=== PATIENT | female | born 1975 | race African-American/Black ===

== ENCOUNTER 2017-07-28 16:41 | Emergency (ER) | payer OTHER ==
[2017-07-28] MEDS ORDERED: Dexamethasone 4 mg/ml Vial ONE (19:45)
== END 2017-07-28 20:12 | disposition home or self-care (01) ==
LOC: ERS 16:41
DX: J02.9 Acute pharyngitis, unspecified (principal)
CPT/HCPCS: 87081; 87430; 99283; J1100

== ENCOUNTER 2017-09-06 00:38 | Emergency (ER) | payer OTHER ==
[2017-09-06] MEDS ORDERED: Promethazine HCl 25 MG/ML VIAL ONE (01:12)
[2017-09-06] MEDS ORDERED: Dicyclomine 20 MG TAB ONE (01:12)
[2017-09-06] MEDS ORDERED: Pantoprazole 40 MG VIAL ONE (01:13)
[2017-09-06 01:36] LABS: #Eosinphils 0.1 thou/uL (0.0-0.7); #Lymphocytes 1.4 thou/uL (1.20-3.40); #Monocytes 0.8 thou/uL (0.11-0.59); %Basophils 0.4 % (0.0-1.0); %Eosinophils 0.7 % (0.0-10.0); %Lymphocytes 12.1 % (21.0-51.0); %Monocytes 6.9 % (0.0-10.0); Hemoglobin 12.9 g/dL (12.0-16.0); Mean Corpuscular HGB CONC 31.5 g/dL (32.0-36.0); Mean Corpuscular Hemoglobin 25.8 pg (27.0-31.0); Mean Corpuscular Volume 81.9 fl (81.0-99.0); Mean Platelet Volume 8.1 fL (7.4-10.4); Platelet Count 241 thou/uL (130-400); RBC Distribution Width 13.2 % (11.5-14.5); Red Blood Cell (RBC) Count 4.98 mill/uL (4.20-5.40); White Blood Cell (WBC) Count 11.2 thou/uL (4.8-10.8)
[2017-09-06 01:49] LABS: BHCG - Serum Negative (NEGATIVE); Pregs Control Background? CLEAR/WHITE (CLR/WHITE); Pregs Control Bar Appear? YES (CONTROL BAR)
[2017-09-06 01:50] LABS: ALT (SGPT) 38 U/L (8-55); AST (SGOT) 37 U/L (5-34); Albumin 4.1 g/dL (3.5-5.0); Alkaline Phosphatase 78 U/L (40-150); Anion Gap 13 mmol/L (10-20); BUN (Urea Nitrogen) 12 mg/dL (7.0-18.7); Bilirubin, Total 0.8 mg/dL (0.2-1.2); Calc. Creatinine Clearance 0 mL/min (70-130); Calcium 9.7 mg/dL (7.8-10.44); Carbon Dioxide 22 mmol/L (22-29); Chloride 107 mmol/L (98-107); Estimated GFR-MDRD Greater than 90; Globulin 3.5 g/dL (2.4-3.5); Glucose 127 mg/dL (70-105); Lipase 36 U/L (8-78); Potassium 3.9 mmol/L (3.5-5.1); Protein, Total 7.6 g/dL (6.0-8.3); Sodium 138 mmol/L (136-145)
[2017-09-06] MEDS ORDERED: Mag-Al 1200 mg/1200 mg/30 ML UDCUP ONE (02:05)
[2017-09-06] MEDS ORDERED: Lidocaine Viscous Sol 2% 15 ml UD Cup ONE (02:05)
[2017-09-06 03:27] LABS: Bilirubin Negative (Negative); Blood, Urine Negative (Negative); Clarity CLEAR (Clear); Glucose, Urine (Dipstick) Negative (Negative); Leukocyte Negative (Negative); Nitrite Negative (Negative); Protein, Urine (Dipstick) Negative (Neg-Trace); Urobilinogen 0.2 mg/dL (0.2-1.0); pH, Urine 8.5 (5.0-9.0)
== END 2017-09-06 05:05 | disposition home or self-care (01) ==
LOC: ERS 00:38
DX: K29.00 Acute gastritis without bleeding (principal); I50.9 Heart failure, unspecified; Z79.899 Other long term (current) drug therapy
CPT/HCPCS: 36415; 80053; 81003; 83690; 84703; 85025; 96365; 96366; 96372; 96375; C9113; J2550

== ENCOUNTER 2017-09-29 16:01 | Outpatient (CLI) | payer OTHER | END 2017-09-29 16:02 | disposition home or self-care (01) | LOC: BICMAMMO 16:01 | PROVIDERS: ATTEND Family Medicine | DX: Z12.31 Encounter for screening mammogram for malignant neoplasm of breast (principal); Z80.3 Family history of malignant neoplasm of breast | CPT/HCPCS: 77063; 77067 ==

== ENCOUNTER 2017-11-21 07:30 | Day surgery (SDC) | payer OTHER ==
[2017-11-21] MEDS ORDERED: diphenhydrAMINE 50 MG/ML VIAL ONE ×2 (08:01→08:18)
[2017-11-21] MEDS ORDERED: Metoclopramide HCl 10 MG/2 ML VIAL ONE ×2 (08:01→15:09)
[2017-11-21 08:29] LABS: #Eosinphils 0.1 thou/uL (0.0-0.7); #Lymphocytes 1.3 thou/uL (1.20-3.40); #Monocytes 0.6 thou/uL (0.11-0.59); #Neutrophils 6.7 thou/uL (1.40-6.50); %Basophils 0.3 % (0.0-1.0); %Eosinophils 0.9 % (0.0-10.0); %Lymphocytes 15.2 % (21.0-51.0); %Monocytes 6.9 % (0.0-10.0); %Neutrophils 76.7 % (42.0-75.0); Hemoglobin 12.4 g/dL (12.0-16.0); Mean Corpuscular Volume 81.1 fL (78.0-98.0); Mean Platelet Volume 8.1 fL (7.4-10.4); Platelet Count 224 thou/uL (130-400); RBC Distribution Width 12.8 % (11.5-14.5); Red Blood Cell (RBC) Count 4.76 mill/uL (4.20-5.40); White Blood Cell (WBC) Count 8.7 thou/uL (4.8-10.8)
[2017-11-21 08:53] LABS: ALT (SGPT) 66 U/L (8-55); AST (SGOT) 84 U/L (5-34); Albumin 3.9 g/dL (3.5-5.0); Alkaline Phosphatase 87 U/L (40-150); Anion Gap 11 mmol/L (10-20); Bilirubin, Total 0.6 mg/dL (0.2-1.2); Calc. Creatinine Clearance 0 mL/min (70-130); Carbon Dioxide 23 mmol/L (22-29); Chloride 107 mmol/L (98-107); Estimated GFR-MDRD Greater than 90; Globulin 3.4 g/dL (2.4-3.5); Glucose 122 mg/dL (70-105); Lipase 39 U/L (8-78); Potassium 4.5 mmol/L (3.5-5.1); Protein, Total 7.3 g/dL (6.0-8.3); Sodium 136 mmol/L (136-145)
[2017-11-21 09:10] LABS: BUN (Urea Nitrogen) 12 mg/dL (7.0-18.7)
--- NOTE | 2017-11-21 09:49 | RAD ---
FRONTAL RADIOGRAPH CHEST: Date: 11/21/17 COMPARISON: 09/12/14. HISTORY: Right upper quadrant pain radiating towards the back with nausea and vomiting. FINDINGS: There is no pneumothorax, pleural fluid, focal consolidation, or alveolar edema. Heart and mediastina l contours are unremarkable. IMPRESSION: No acute findings. POS: [facility]
[2017-11-21 09:55] LABS: Bilirubin Negative (Negative); Blood, Urine Negative (Negative); Clarity CLEAR (Clear); Glucose, Urine (Dipstick) Negative (Negative); Leukocyte Negative (Negative); Nitrite Negative (Negative); Protein, Urine (Dipstick) Negative (Neg-Trace)
[2017-11-21 09:56] LABS: Pregnancy Test - Urine (BHCG) Negative (Negative); Pregu Control Background? CLEAR/WHITE (CLR/WHITE); Pregu Control Bar Appear? YES (CONTROL BAR)
[2017-11-21] MEDS ORDERED: Ampicillin/Sulbactam 3 GM in Sodium Chloride 0.9% 100 ML IVPB SCH (10:00)
--- NOTE | 2017-11-21 10:05 | ULT ---
RIGHT UPPER QUADRANT ULTRASOUND: Date: 11-21-17 Comparison: None History: Abdominal pain. Technique: Multiplanar grayscale sonographic imaging of the right upper quadrant obtained. FINDINGS: Imaged pancreas appears unremarkable. The distal body and tail are obscured by bowel gas. There is no focal liver lesion or intrahepatic biliary dilatation noted. Common bile duct measures 6 mm, within normal limits. The right kidney measures 9.3 cm in craniocaudal dimension and demonstrates no evidence for stone, hy dronephrosis, or mass. There is a shadowing echogenic focus in the region of the gallbladder neck suggesting a gallstone. e health information coder reports a positive Barrera's sign. Mild gallbladder wall thickening and trace pericholec ystic fluid suspected. IMPRESSION: Findings suggesting a stone in the region of the gallbladder neck with positive Barrera's sign as well as mild gallbladder wall thickening and questionable trace pericholecystic fluid. Findings are suspi cious for acute cholecystitis in the proper clinical setting. POS: [facility]
--- NOTE | 2017-11-21 11:38 | HP ---
DATE OF ADMISSION: 11/21/2017 HISTORY OF PRESENT ILLNESS: Ms. Washburn is a 42-year-old morbidly obese woman, with 1 spontaneous . The patient presented to the emergency department with recurrent epi gastric to right upper quadrant abdominal pain. She reported having a late lunch consisting of steak and fried chicken. She awoke a little past midnight with 10/10 epigastric to right upper quadrant a bdominal pain which radiated to her back. The pain was associated with 1 episode of emesis. The patient denies any fevers or chills. PAST MEDICAL HISTORY: Pertinent for morbid obesity. SURGICAL HISTORY: Pertinent for 1 8 years ago. 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 She is a , 1 set of twins an d 1 spontaneous . She denies any cigarette smoking or illicit drug abuse. She admits to occ asional intake of ethanol in moderate amounts. PREHOSPITALIZATION MEDICATIONS: Include Zantac which she takes [id number] although she was giv en a prescription for Prilosec 2 months ago during the last hospital visit at which time she was told she had gastroenteritis. She does not take the Prilosec at the moment. ALLERGIES: The patient denies any known drug allergies. FAMILY HISTORY: Notable for diabetes mellitus in her father who also has heart disease. Her mother has essential hypertension. Maternal grandmother with uterine carcinoma and 2 maternal aunts with br east carcinoma. REVIEW OF SYSTEMS: A 10 point review of systems essentially unremarkable except for as stated in pas t medical history and chief complaint. PHYSICAL EXAMINATION: GENERAL: This reveals a 42-year-old morbidly obese woman who is otherwise coherent and interactive a nd appears stated age. The patient is alert and oriented x3, appears to be in no acute distress at t he time of my evaluation. VITAL SIGNS: Includes blood pressure 128/95, pulse 78, respiratory rate is 18, temperature 97.7 degr ees Fahrenheit, oxygen saturation 98% on room air. HEENT: Reveals normocephalic and atraumatic. Pupils are equal, round, reactive to light and accommo dation. Extraocular muscles are intact bilaterally. No sclerae icterus is present. Oral mucosa is pink and moist. No lesions are noted. NECK: Supple. No palpable lymphadenopathy or thyromegaly present. HEART: Reveals regular rate and rhythm, no murmurs or gallops auscultated. LUNGS: Clear to auscultation bilaterally. Breathing regular and unlabored. ABDOMEN: Soft and obese. She has right upper quadrant tenderness to palpation with a positive Chery y sign. Liver and spleen nonpalpable below costal margin. EXTREMITIES: Reveals 2+ radial and pedal pulses bilaterally. NEUROLOGIC: Reveals no focal deficits present. PERTINENT LABORATORY DATA: CBC with 8700 white blood cells, hemoglobin and hematocrit are 12.4 and 3 8.6 respectively. Platelet count is 224,000. Metabolic profile: Sodium 136, potassium is 4.5, chlo ride is 107, bicarbonate is 23, BUN 12, creatinine 0.76, glucose is 122, total bilirubin is normal at 0.6, AST and ALT are elevated at 84 and 66 respectively. Serum lipase is normal at 39. I have personally reviewed the abdominal ultrasound, which is remarkable for enlarged gallbladder wit h gallbladder wall thickening and pericholecystic fluid. Gallbladder wall is thickened at 6.5 mm. C ommon bile duct is also dilated for this patient's age at 5.8 mm. Although I am not able to visualiz e any gallstones, the radiology report indicates a stone probably in the neck of the gallbladder. IMPRESSION: Acute cholecystitis with a dilated common bile duct. PLAN: Laparoscopic cholecystectomy with intraoperative cholangiogram. The above findings and plan have been discussed with the patient who indicates understanding of the i nformation given. I have advised the patient of the risk and benefits of the proposed surgery. Risk s include, but not limited to bleeding, infection, injury to bile duct or surrounding structures. Th e patient indicates understanding the information I have given her today. I have answered her questi ons. This information is given to the patient in the presence of her nurse. She has given consent f or this admission and surgical intervention.
[2017-11-21] MEDS ORDERED: Fentanyl 100 MCG/2 ML VIAL ONE (11:53)
[2017-11-21] MEDS ORDERED: Bupivacaine HCl 0.5%/Epinephrine 1:200,000/PF 30 ml Vial ONE (12:06)
[2017-11-21] MEDS ORDERED: Iothalamate Meglumine 60% 50 ML VIAL FS ONE (12:06)
[2017-11-21] MEDS ORDERED: Ondansetron HCl/PF 4 MG/2 ML Vial ONE ×2 (15:09→17:39)
[2017-11-21] MEDS ORDERED: PHENYLEPHRINE-NS 100 MCG/ML 10 ML SYRINGE ONE (15:09)
[2017-11-21] MEDS ORDERED: Lidocaine 1% PF 5 ML VIAL ONE (15:09)
[2017-11-21] MEDS ORDERED: Ketorolac Tromethamine 30 MG/ML VIAL ONE (15:09)
[2017-11-21] MEDS ORDERED: Glycopyrrolate 0.2 MG/ML 5 ML SYRINGE ONE (15:09)
[2017-11-21] MEDS ORDERED: Dexamethasone 20 MG/5 ML VIAL ONE (15:09)
[2017-11-21] MEDS ORDERED: Labetalol 100 MG/20 ML MDV ONE (15:09)
[2017-11-21] MEDS ORDERED: PROPOFOL 200 MG/20 ML VIAL ONE (15:09)
--- NOTE | 2017-11-21 15:59 | RAD ---
INTRAOPERATIVE CHOLANGIOGRAM FLUOROSCOPY: History: Cholecystitis. FINDINGS: Intraoperative fluoroscopy was provided for cholangiogram as performed by Dr. Brown. Three spot fluor oscopic images show opacification of a nondilated common duct without filling defect, and without cesar ling reliably demonstrated. Contrast passes into a loop of bowel at the mid abdomen on the images. POS: [facility]
--- NOTE | 2017-11-21 16:22 | OP ---
DATE OF OPERATION: 11/21/2017 PREOPERATIVE DIAGNOSES: Acute cholecystitis, cholelithiasis. POSTOPERATIVE DIAGNOSES: Acute cholecystitis, cholelithiasis. OPERATION PERFORMED: Laparoscopic cholecystectomy with intraoperative cholangiogram. SURGEON: Steve Brown D.O. ANESTHESIA: General endotracheal. ESTIMATED BLOOD LOSS: 10 mL FLUIDS GIVEN: 1500 mL crystalloids. SPONGE AND INSTRUMENT COUNT: Certified as correct x2. COMPLICATIONS: None apparent at the time of operation. INDICATIONS FOR PROCEDURE: A 42-year-old morbidly obese woman presented with recurrent epigastric ri ght upper quadrant abdominal pain. Clinical and radiographic examination was consistent with acute c holecystitis, cholelithiasis, for which patient was brought to the operating room for laparoscopic ch olecystectomy. The common bile duct was also dilated in diameter for this patient's age and the AST and ALT were also elevated. Therefore, intraoperative cholangiogram was warranted. DESCRIPTION OF PROCEDURE: Informed consent obtained from the patient, who was brought to the operati ng room and placed in spine position. Following general anesthesia, abdomen is sterilely prepped and draped in usual fashion. Skin below the umbilicus was infiltrated with 0.25% Marcaine with epinephr ine. A small curvilinear infraumbilical incision is made using an 11 scalpel. Umbilical stalk was g rasped with Odilon's and elevated. Veress needle was inserted through this incision placed in the pe ritoneal cavity through which the abdomen was insufflated with 3 liters of CO2 gas. Intraabdominal p ressure was noted at 2 mmHg. Following abdominal insufflation, Veress needle was removed and a 5 mm trocar introduced using the Visiport under laparoscopy. Laparoscopy confirmed proper placement of th e port, no injuries to underlying structures. Additional laparoscopy reveals gallbladder in the usua l anatomic location completely encased by omental adhesions. Under laparoscopy, a 12 mm epigastric a nd two 5 mm right lateral subcostal ports were placed after the overlying skin was infiltrated with 0 .25% Marcaine with epinephrine and appropriate incisions made. The patient was then placed in the re verse Trendelenburg position rotated to her left. I introduced [place] dissector with cautery to ta ke down omental adhesions revealing the fundus of the gallbladder. A prestige grasper was introduced through the right lateral subcostal port grasping the fundus of the gallbladder which was elevated c ephalad. Omental adhesions were then taken down from remainder of the gallbladder with good hemostas is. A second Prestige grasper introduced through the right medial subcostal port grasping the Hartma n's pouch, which was retracted laterally. Using a [place] dissector, the cystic duct was carefully dissected free from surrounding structures at the triangle of Calot. I applied one clip at the junct ion of the cystic duct and gallbladder. Cystic artery dissected free from surrounding structures and divided between clips. Two clips were applied proximally and one clip at the junction of the cystic artery and gallbladder. I then made a cystotomy proximal to the securing cystic ductal clip. Intro duced a cholangiocatheter in the right upper quadrant, inserting this into the cystic ductal lumen af ter it was flushed with saline. This was secured with a single clip. Cholangiogram was then completed using a total of 15 mL of Conray contrast. Finding no filling defec ts. Total fluoroscopy time was 41 seconds. Following cholangiography, securing clip was removed and cholangiocatheter was removed from the peritoneal cavity. The cystic duct was then divided between clips and applied two clips proximally. The gallbladder itself was removed from the liver bed using cautery with good hemostasis. The gallbladder was delivered of the abdominal cavity using an EndoCat ch. Operative site was then irrigated with saline, noting good hemostasis in place. All clips remai n in place, no bile stains present. Finding no other pathology, laparoscopy was terminated. Fascia of the epigastric port was closed using 0 Vicryl suture and Endo Close device under direct laparoscop y. Abdomen was desufflated. All ports and instruments removed and accounted for. Skin incisions we re closed using 4-0 Monocryl suture in subcuticular fashion. Dermabond was then applied over the inc isional closure. The patient tolerated procedure without any apparent complication and was returned to recovery room in satisfactory condition.
[2017-11-21] MEDS ORDERED: Morphine 4 MG/ML VIAL ONE (17:02)
[2017-11-21] MEDS ORDERED: HYDROcodone/Acetaminophen 5/325 mg Tablet ONE (17:25)
== END 2017-11-21 18:42 | disposition home or self-care (01) ==
LOC: ERS 07:30 → SDC 10:04
PROVIDERS: ATTEND Surgery
PROC: 0FT44ZZ Resection of Gallbladder, Percutaneous Endoscopic Approach (ICD-10-PCS; principal; 2017-11-21)
PROC: BF13YZZ Fluoroscopy of Gallbladder and Bile Ducts using Other Contrast (ICD-10-PCS; principal; 2017-11-21)
DX: K80.12 Calculus of gallbladder with acute and chronic cholecystitis without obstruction (principal); K83.8 Other specified diseases of biliary tract; E66.01 Morbid (severe) obesity due to excess calories; Z68.42 Body mass index [BMI] 45.0-49.9, adult
CPT/HCPCS: 36415; 71045; 76705; 80053; 81003; 81025; 83690; 85025; 86850; 86900; 86901; 88304; 96361; 96374; 96375; J0295; J0670; J1100; J1200; J1610; J1885; J2001; J2270; J2405; J2704; J2765; J3010; J7050; Q9961

== ENCOUNTER 2019-03-14 14:43 | Emergency (ER) | payer OTHER ==
[~2019-03-14 14:43] MED LIST: Iopamidol-370 76% 500 ML 1 ML ONE
[2019-03-14 15:30] LABS: #Basophils 0.1 thou/uL (0.0-0.2); #Lymphocytes 0.3 thou/uL (1.20-3.40); #Monocytes 0.5 thou/uL (0.11-0.59); #Neutrophils 10.4 thou/uL (1.40-6.50); %Basophils 1.3 % (0.0-1.0); %Eosinophils 0.4 % (0.0-10.0); %Lymphocytes 2.3 % (21.0-51.0); %Monocytes 4.5 % (0.0-10.0); %Neutrophils 91.5 % (42.0-75.0); Hemoglobin 13.9 g/dL (12.0-16.0); Mean Corpuscular HGB CONC 31.8 g/dL (32.0-36.0); Mean Corpuscular Hemoglobin 25.8 pg (27.0-31.0); Platelet Count 248 thou/uL (130-400); RBC Distribution Width 13.1 % (11.5-14.5); Red Blood Cell (RBC) Count 5.41 mill/uL (4.20-5.40); White Blood Cell (WBC) Count 11.4 thou/uL (4.8-10.8)
[2019-03-14 15:45] LABS: ALT (SGPT) 25 U/L (8-55); AST (SGOT) 22 U/L (5-34); Albumin 4.2 g/dL (3.5-5.0); Alkaline Phosphatase 80 U/L (40-110); Anion Gap 16 mmol/L (10-20); BUN (Urea Nitrogen) 16 mg/dL (7.0-18.7); Bilirubin, Total 0.5 mg/dL (0.2-1.2); Calc. Creatinine Clearance 0 mL/min (70-130); Calcium 9.3 mg/dL (7.8-10.44); Carbon Dioxide 20 mmol/L (22-29); Chloride 108 mmol/L (98-107); Estimated GFR-MDRD Greater than 90; Globulin 3.8 g/dL (2.4-3.5); Glucose 92 mg/dL (70-105); Potassium 4.7 mmol/L (3.5-5.1); Sodium 139 mmol/L (136-145)
[2019-03-14] MEDS ORDERED: Mag-Al 1200 mg/1200 mg/30 ML UDCUP ONE (18:32)
[2019-03-14] MEDS ORDERED: Ondansetron PF 4 MG/2 ML Vial ONE (18:32)
[2019-03-14] MEDS ORDERED: Lidocaine Viscous Sol 2% 15 ml UD Cup ONE (18:32)
[2019-03-14 20:04] LABS: #Lymphocytes 0.5 thou/uL (1.20-3.40); #Monocytes 0.4 thou/uL (0.11-0.59); #Neutrophils 8.9 thou/uL (1.40-6.50); %Basophils 0.2 % (0.0-1.0); %Eosinophils 0.2 % (0.0-10.0); %Lymphocytes 4.7 % (21.0-51.0); %Neutrophils 91.1 % (42.0-75.0); Hemoglobin 14.7 g/dL (12.0-16.0); Mean Corpuscular HGB CONC 32.2 g/dL (32.0-36.0); Mean Corpuscular Hemoglobin 25.8 pg (27.0-31.0); Mean Corpuscular Volume 80.2 fL (78.0-98.0); Platelet Count 249 thou/uL (130-400); Red Blood Cell (RBC) Count 5.71 mill/uL (4.20-5.40); White Blood Cell (WBC) Count 9.7 thou/uL (4.8-10.8)
--- NOTE | 2019-03-14 20:28 | CT ---
EXAM: Abdomen and pelvic CT scan with contrast: HISTORY: Epigastric pain COMPARISON: None FINDINGS: The visualized lung bases are clear. Liver: Minimal hepatomegaly. Gallbladder:Status post cholecystectomy. No ductal dilatation. Pancreas:Unremarkable Spleen:Unremarkable. Adrenal glands:Unremarkable. Kidneys:No renal calculus or acute obstruction. No solid or cystic renal mass. Fat-containing umbilical hernia. Minimal fluid in the right colon and small bowel, nonspecific but without evidence for significant ab normal dilatation or obstruction or abnormal wall thickening. Exam is significantly limited technically because of very large body habitus. No CT evidence for acute appendicitis. The urinary bladder is unremarkable. Reproductive system:Unremarkable No abscess, adenopathy, or abnormal fluid collection within the abdomen or pelvis. IMPRESSION: No significant acute process in the abdomen or pelvis.
[2019-03-14 20:29] LABS: ALT (SGPT) 30 U/L (8-55); AST (SGOT) 31 U/L (5-34); Albumin 4.6 g/dL (3.5-5.0); Alkaline Phosphatase 89 U/L (40-110); Anion Gap 18 mmol/L (10-20); BUN (Urea Nitrogen) 15 mg/dL (7.0-18.7); Bilirubin, Total 0.6 mg/dL (0.2-1.2); Calc. Creatinine Clearance 0 mL/min (70-130); Calcium 9.5 mg/dL (7.8-10.44); Carbon Dioxide 21 mmol/L (22-29); Chloride 106 mmol/L (98-107); Estimated GFR-MDRD Greater than 90; Globulin 3.9 g/dL (2.4-3.5); Glucose 98 mg/dL (70-105); Lipase 33 U/L (8-78); Potassium 4.9 mmol/L (3.5-5.1); Protein, Total 8.5 g/dL (6.0-8.3); Sodium 140 mmol/L (136-145)
[2019-03-14 20:50] LABS: Bacteria/HPF None Seen HPF (None Seen); Bilirubin Negative (Negative); Blood, Urine Negative (Negative); Clarity Clear (Clear); Glucose, Urine (Dipstick) Normal (Negative); Leukocyte Negative Leu/uL (Negative); Nitrite Negative (Negative); Protein, Urine (Dipstick) 10 mg/dL (Neg-Trace); RBC/HPF 0-3 HPF (0-3); Squamous Epithelial 0-3 HPF (0-3); Urobilinogen Normal mg/dL (Less than 2); WBC/HPF 0-3 HPF (0-3)
[2019-03-14 21:47] LABS: BHCG - Serum Negative (NEGATIVE); Pregs Control Background? CLEAR/WHITE (CLR/WHITE); Pregs Control Bar Appear? YES (CONTROL BAR)
== END 2019-03-14 21:00 | disposition home or self-care (01) ==
LOC: ERS 14:43
DX: K29.00 Acute gastritis without bleeding (principal)
CPT/HCPCS: 36415; 74177; 80053; 81001; 83690; 84484; 84703; 85025; 93005; J2405; Q9967

== ENCOUNTER 2021-12-27 17:48 | Emergency (ER) | payer OTHER | END 2021-12-27 20:50 | disposition home or self-care (01) | LOC: ERS 17:48 | DX: U07.1 COVID-19 (principal); J12.82 Pneumonia due to coronavirus disease 2019 | CPT/HCPCS: 71045 ==

== ENCOUNTER 2023-02-12 18:00 | Emergency (ER) | payer OTHER, SELFPAY ==
[2023-02-12] MEDS ORDERED: Ketorolac Tromethamine 30 MG/ML VIAL ONE (21:04)
== END 2023-02-12 21:15 | disposition home or self-care (01) ==
LOC: ERS 18:00
DX: S86.911A Strain of unspecified muscle(s) and tendon(s) at lower leg level, right leg, initial encounter (principal); X50.0XXA Overexertion from strenuous movement or load, initial encounter; Y93.89 Activity, other specified
CPT/HCPCS: 96372; 99283; J1885

== ENCOUNTER 2024-04-21 21:49 | Emergency (ER) | payer OTHER | END 2024-04-22 00:16 | disposition home or self-care (01) | LOC: ERS 21:49 | DX: J06.9 Acute upper respiratory infection, unspecified (principal) | CPT/HCPCS: 87428; 99283 ==